=== PATIENT | female | born 1965 | race Two or more races ===

== ENCOUNTER → 2020-11-01 | Day surgery (SDC) | payer OTHER ==
[~2020-11-01] MED LIST: ZESTRIL10 M1 PO
== END | disposition home or self-care (01) ==
LOC: ADM 10-26 07:00 → CIR.AMB 06:55
PROVIDERS: ATTEND Specialist
DX: K42.9 Umbilical hernia without obstruction or gangrene (principal); Z20.822 Contact with and (suspected) exposure to COVID-19

== ENCOUNTER 2025-06-28 11:16 | Emergency (ER) | payer OTHER ==
[~2025-06-28] VITALS: Ht 160 cm; Wt 90.7 kg
[2025-06-28] MEDS ORDERED: ORPHENADRINE CITRATE 30 MG/ML AMPUL IM ONE (13:00)
[2025-06-28] MEDS ORDERED: DEXAMETHASONE SODIUM PHOSPHATE 4 MG/ML VIAL IM ONE (13:00)
[2025-06-28] MEDS ORDERED: ACETAMINOPHEN 500 MG GEL..CAP PO ONE (13:00)
[2025-06-28] MEDS ORDERED: KETOROLAC TROMETHAMINE 60 MG VIAL IM ONE (13:00)
[2025-06-28] MEDS ORDERED: NORFLEX100MG PO (13:01)
[2025-06-28] MEDS ORDERED: MEDROLPACK PO (13:01)
[2025-06-28] MEDS ORDERED: KETO10TA2 PO (13:01)
== END 2025-06-28 14:38 | disposition home or self-care (01) ==
LOC: ER 11:17
DX: M62.838 Other muscle spasm (principal); M54.50 Low back pain, unspecified; I10 Essential (primary) hypertension
CPT/HCPCS: 96372; 99282; J1100; J1885; J2360